=== PATIENT | female | born 1965 | race Hispanic/Latino ===

== ENCOUNTER 2017-06-26 09:34 | Day surgery (SDC) | payer BC ==
[~2017-06-26] VITALS: Ht 157.5 cm; Wt 71.4 kg
[~2017-06-26 09:34] MED LIST: SODIUM CHLORIDE 0.9% 1000ML 1,000 ML IV ONE
[2017-06-26 11:30] VITALS: BP 119/66
[2017-06-26] MEDS ORDERED: MEPERIDINE-PF 50 MG/ML SYG ONE ×2 (12:12→12:20)
[2017-06-26] MEDS ORDERED: MIDAZOLAM HCL 1 MG/ML 2ML VIAL ONE ×2 (12:13→12:20)
[2017-06-26 12:43] VITALS: BP 123/65
== END 2017-06-26 13:06 ==
LOC: DAH 09:34
PROVIDERS: ATTEND Internal Medicine Gastroenterology
DX: Z12.11 Encounter for screening for malignant neoplasm of colon (principal); Z80.0 Family history of malignant neoplasm of digestive organs
CPT/HCPCS: 45378; A4606; J2175 ×2; J2250 ×2; J7030; 99152; 99153